=== PATIENT | male | born 1990 | race African-American/Black ===

== ENCOUNTER 2020-01-01 14:15 | Emergency (ER) | payer SELFPAY ==
[~2020-01-01] VITALS: Ht 175.3 cm; Wt 86.0 kg
[~2020-01-01 14:15] MED LIST: AMOXICILLIN500 M2 PO; AMOXICILLIN500 MG PO; BENTYL20 MG OR; DOXYCYC MONO100 MG OR; LORTAB5 PO; NAPROSYN500 MG OR; NORCO1 TA1 PO; PERIDEX0.12 % MT
[2020-01-01] MEDS ORDERED: KEFLEX500 MG PO (14:51)
[2020-01-01 15:10] VITALS: BP 136/79
== END 2020-01-01 15:10 | disposition home or self-care (01) | DRG 605 ==
LOC: ED 14:15
DX: S00.511A Abrasion of lip, initial encounter (principal); W22.09XA Striking against other stationary object, initial encounter; Y92.009 Unspecified place in unspecified non-institutional (private) residence as the place of occurrence of the external cause

== ENCOUNTER 2020-11-06 11:17 | Emergency (ER) | payer SELFPAY ==
[~2020-11-06 11:17] MED LIST changes: +KEFLEX500 MG PO
== END 2020-11-06 12:08 | disposition left against medical advice (07) | DRG 951 ==
LOC: ED 11:17 → LWOBS 12:07
DX: Z53.21 Procedure and treatment not carried out due to patient leaving prior to being seen by health care provider (principal)

== ENCOUNTER 2020-11-09 11:07 | Emergency (ER) | payer SELFPAY ==
[~2020-11-09] VITALS: Ht 175.3 cm; Wt 84.0 kg
[2020-11-09] MEDS ORDERED: CORTISPORIN OTI10 M2 AU (12:17)
[2020-11-09 12:20] VITALS: BP 154/82
== END 2020-11-09 12:20 | disposition home or self-care (01) | DRG 156 ==
LOC: ED 11:07
PROC: 3E1B78Z Irrigation of Ear using Irrigating Substance, Via Natural or Artificial Opening (ICD-10-PCS; principal; 2020-11-09)
PROC: 3E1B78Z Irrigation of Ear using Irrigating Substance, Via Natural or Artificial Opening (ICD-10-PCS; 2020-11-09)
DX: H61.23 Impacted cerumen, bilateral (principal)